=== PATIENT | male | born 1950 | race Caucasian/White ===

== ENCOUNTER 2016-05-06 00:07 | Emergency (ER) | payer OTHER ==
[~2016-05-06] VITALS: Ht 185.4 cm; Wt 108.9 kg
[~2016-05-06 00:07] MED LIST: AUGMENTIN 875875 M1 PO; CRESTOR20 MG PO; LEVAQUIN 750 M750 MG PO; MOBIC15 MG PO; MOM PO; NASONEX17 GM NASAL; NORCO 7.5-3251 EACH PO; OXYCODONE-ACET1 EACH PO; ZYRTEC 10 MG TA10 MG PO; ZYRTEC10 M2
[2016-05-06] MEDS ORDERED: ZPAK PO (01:50)
[2016-05-06] MEDS ORDERED: TUSSIONEX PENN473 ML PO (01:50)
== END 2016-05-06 02:13 | disposition home or self-care (01) ==
LOC: ER 00:07
DX: J18.9 Pneumonia, unspecified organism (principal); R50.9 Fever, unspecified; R51 Headache; M79.1 Myalgia; E78.00 Pure hypercholesterolemia, unspecified; F10.99 Alcohol use, unspecified with unspecified alcohol-induced disorder; F12.10 Cannabis abuse, uncomplicated

== ENCOUNTER 2016-11-02 11:04 | Emergency (ER) | payer OTHER ==
[~2016-11-02] VITALS: Ht 185.4 cm; Wt 113.4 kg
--- NOTE | ~2016-11-02 | EKG ---
[place] [address] [facility] [place] [address] ELECTROCARDIOGRAM REPORT Name: ALEE PETTIT [facility] [id number] Admission: 11/02/16 Attend Phys: Discharge: Date of : 48 Report #: [id number] THIS REPORT FOR: //name// [facility] ED Test Date: 2016-11-02 Test Time: 11:35:41 Pat Name: ALEE PETTIT Department: Room: Gender: [employer]: MERLINE : 1950 Requested By: Demarcus Nguyễn Order Number: [id number] MD: Giuseppe Rai Measurements Intervals [place] Rate: 82 P: 59 IN: 221 QRS: 53 QRSD: 110 T: 11 QT: 377 QTc: 441 Interpretive Statements Sinus rhythm Prolonged IN interval Probable left atrial enlargement Compared to ECG 09/24/2012 10:13:49 First degree AV block now present Myocardial infarct finding no longer present Electronically Signed On 11-02-2016 14:13:23 CDT by Giuseppe Rai [email or web address] <ELECTRONICALLY SIGNED> By: Giuseppe Rai MD 11/02/16 1413 1135 1135 Giuseppe Rai MD /DAVION
[~2016-11-02 11:04] MED LIST changes: +TUSSIONEX PENN473 ML PO; +ZPAK PO
[2016-11-02 11:55] LABS: ABSOLUTE NEUTROPHILS 3.5 thou/uL (1.4-8.2); BASOPHILS 1.5 % (0.0-2.0); EOSINOPHILS 2.5 % (0.0-3.0); HEMATOCRIT 40.4 % (42.0-52.0); HEMOGLOBIN 13.8 gm/dL (14.0-18.0); LYMPHOCYTES 22.9 % (24.0-44.0); MCH 31.6 pg (26.0-34.0); MCHC 34.1 g/dL (28.0-37.0); MCV 92.7 fL (80.0-100.0); MONOCYTES 9.4 % (1.0-8.0); PLATELET COUNT 222 thou/uL (150-400); POLYS 63.7 % (36.0-66.0); RBC 4.36 mil/uL (4.50-6.00); RDW 13.2 % (10.5-14.5); WBC 5.5 thou/uL (4.0-11.0)
[2016-11-02 11:58] LABS: MANUAL DIFF NO
[2016-11-02 12:03] LABS: ANION GAP 6 mmol/L (7-16); BUN 16 mg/dL (7-18); CALCIUM 8.7 mg/dL (8.5-10.1); CHLORIDE 108 mmol/L (98-107); CO2 27 mmol/L (21-32); GLUCOSE 108 mg/dL (74-106); POTASSIUM 3.9 mmol/L (3.5-5.1); SODIUM 141 mmol/L (136-145)
[2016-11-02 12:15] LABS: NT-PRO BRAIN NAT PEPTIDE 45 pg/mL (<300); TROPONIN-I < 0.04 ng/mL (<0.04-0.07)
[2016-11-02] MEDS ORDERED: AUGMENTIN 875-1 EACH PO (15:16)
== END 2016-11-02 15:33 | disposition home or self-care (01) ==
LOC: ER 11:04
PROVIDERS: Emergency Medicine
DX: R91.8 Other nonspecific abnormal finding of lung field (principal); E78.00 Pure hypercholesterolemia, unspecified; M19.90 Unspecified osteoarthritis, unspecified site; F10.99 Alcohol use, unspecified with unspecified alcohol-induced disorder; F12.10 Cannabis abuse, uncomplicated

== ENCOUNTER → 2016-11-11 | Outpatient (CLI) | payer OTHER ==
[~2016-11-11] MED LIST changes: +AUGMENTIN 875-1 EACH PO
== END ==
LOC: RAD 11:41
DX: R04.2 Hemoptysis (principal)

== ENCOUNTER → 2016-12-04 | Outpatient (CLI) | payer OTHER | LOC: CAT 11:01 | DX: J47.9 Bronchiectasis, uncomplicated (principal); R04.2 Hemoptysis ==

== ENCOUNTER → 2017-03-06 | Outpatient (CLI) | payer OTHER | LOC: RAD 11:19 | DX: J98.4 Other disorders of lung (principal); R04.2 Hemoptysis ==

== ENCOUNTER → 2017-03-09 | Outpatient (CLI) | payer OTHER ==
--- NOTE | ~2017-03-09 | CNG ---
[facility] [place] [address] CYTO-NONGYN REPORT PROCEDURE Name: HODANROMERO MARCOS Room #: REG [facility]..#: [id number] Admission: 03/09/17 Date of : 48 Discharge: Report #: [id number] Path Case #: [id number] CYTOPATHOLOGY REPORT COLLECTION DATE: 03/09/2017 RECEIVED DATE: 03/09/2017 SUBMITTING PHYS: Dr. Marzena Robbins OTHER PHYS: Dr. Elaine Cortes CLINICAL HISTORY: Hemoptysis SPECIMEN(S) RECEIVED: A.Bronchoalveolar lavage * * * * * * * * * * * * FINAL DIAGNOSIS: A. Bronchoalveolar lavage: - No malignant cells identified. Pulmonary macrophages, bronchial epithelial cells and acute inflammation identified. PATHOLOGIST: Carleen Quinones M.D. REPORT ELECTRONICALLY SIGNED BY: Carleen Quinones M.D. DATE/TIME: 03/10/2017 11:49 * * * * * * * * * * * * GROSS PATHOLOGY: A. Bronchoalveolar lavage: The specimen is submitted unfixed, labeled "Romero Pettit". Received by the Cytology Department is 13 mL of cloudy red fluid. One ThinPrep slide was prepared. (mm 03.09.2017) BRICK SHADER(S): TRISTIN Mendez(ASCP) INITIAL CPT CODE(S): A; 85942 Professional services performed by [facility] at [facility] [address] , [place] [address] Technical services performed by [facility] at [address] [place] [address]., [address], [place] [address]. [facility] [address] [place] [address], [address] [place] [address] PHONE: [phone] [facility] [address] [place] [address] CYTO-NONGYN REPORT PROCEDURE Name: ROMERO PETTIT Room #: REG [facility] [place]#: [id number] Admission: 03/09/17 Date of : 48 Discharge: Report #: [id number] Path Case #: [id number] DIRECTOR: Bill Muñiz M.D. * * * END OF REPORT * * *
--- NOTE | ~2017-03-09 | P ---
[facility] [place] [address] PROCEDURE REPORT Name: ALEE PETTIT Room #: REG [facility]#: [id number] Admission: 03/09/17 Attend Phys: Marzena Robbins MD Discharge: Date of : 48 Report #: [id number] THIS REPORT FOR: //name// CC: Marzena Cortes PROCEDURE: Fiberoptic bronchoscopy. INDICATION: Hemoptysis. MEDICATIONS: Versed 3 mg, fentanyl 50 mcg. COMPLICATIONS: None. PREOPERATIVE DIAGNOSIS: Rule out endobronchial lesion. POSTOPERATIVE DIAGNOSIS: No endobronchial lesion seen, mucus pitting noted, blood in airway; however, no lesion found. DESCRIPTION OF PROCEDURE: The patient was informed of risks and benefits and has had procedure before and understood. Procedure was done in radiographer cardiac catheterization #3. Lidocaine aerosol and Versed 3 and fentanyl 50 were titrated. The patient tolerated the procedure well. Bronchoscope was placed through bite block. Vocal cords moved normally. Main tammy was sharp when entering airway. There was significant what appeared to be dry blood throughout. This was washed. Left was examined first, no endobronchial lesion seen. On the right, again, no endobronchial lesion seen. Mucus pitting was noted. Washes were done throughout the right; however, no bleeding was noted. The patient tolerated well. Discussed with . CT scan was ordered as well as lab work. If further bleeding, they will go to and he will be having a consult with Dr. Ewing at [facility]. PET scan was not done at this time because of possible active infection, but will need to be considered in the future. By: [id number] Marzena Robbins MD /nt
[2017-03-09 07:49] LABS: HEMATOCRIT 40.3 % (42.0-52.0); HEMOGLOBIN 13.5 gm/dL (14.0-18.0); MCH 30.7 pg (26.0-34.0); MCHC 33.4 g/dL (28.0-37.0); MCV 91.8 fL (80.0-100.0); RBC 4.39 mil/uL (4.50-6.00); RDW 13.4 % (10.5-14.5); WBC 9.5 thou/uL (4.0-11.0)
[2017-03-09 08:03] LABS: PROTIME 10.5 Seconds (9.3-11.4)
== END | disposition home or self-care (01) ==
LOC: CATH 07:09
PROVIDERS: Internal Medicine Pulmonary Disease
DX: R04.2 Hemoptysis (principal)

== ENCOUNTER → 2017-05-14 | Outpatient (CLI) | payer OTHER | LOC: RAD 15:00 | DX: J90 Pleural effusion, not elsewhere classified (principal); J98.11 Atelectasis ==

== ENCOUNTER → 2019-03-22 | Outpatient (CLI) | payer OTHER | LOC: RAD 10:01 | DX: J47.0 Bronchiectasis with acute lower respiratory infection (principal); J18.1 Lobar pneumonia, unspecified organism; J98.4 Other disorders of lung; M95.4 Acquired deformity of chest and rib ==

== ENCOUNTER → 2020-08-05 | Outpatient (CLI) | payer OTHER | LOC: SJCVC 09:59 | PROVIDERS: ATTEND Internal Medicine | DX: Z13.220 Encounter for screening for lipoid disorders (principal); I44.0 Atrioventricular block, first degree; I10 Essential (primary) hypertension; J44.9 Chronic obstructive pulmonary disease, unspecified; E78.5 Hyperlipidemia, unspecified; G47.33 Obstructive sleep apnea (adult) (pediatric); Z87.891 Personal history of nicotine dependence; Z79.899 Other long term (current) drug therapy ==

== ENCOUNTER → 2020-08-23 | Outpatient (CLI) | payer OTHER | LOC: SJCVCIMAG 08:09 | PROVIDERS: ATTEND Internal Medicine | DX: I35.8 Other nonrheumatic aortic valve disorders (principal); I77.89 Other specified disorders of arteries and arterioles; M79.604 Pain in right leg; M79.605 Pain in left leg; M79.89 Other specified soft tissue disorders; R60.0 Localized edema; J44.9 Chronic obstructive pulmonary disease, unspecified; I10 Essential (primary) hypertension; G47.33 Obstructive sleep apnea (adult) (pediatric); E78.2 Mixed hyperlipidemia; Z79.899 Other long term (current) drug therapy; Z87.891 Personal history of nicotine dependence ==

== ENCOUNTER → 2020-09-20 | Outpatient (CLI) | payer OTHER | LOC: SJCVC 11:05 | PROVIDERS: ATTEND Internal Medicine | DX: I10 Essential (primary) hypertension (principal); R60.0 Localized edema; J44.9 Chronic obstructive pulmonary disease, unspecified; E78.5 Hyperlipidemia, unspecified; G47.33 Obstructive sleep apnea (adult) (pediatric); Z87.01 Personal history of pneumonia (recurrent); Z87.891 Personal history of nicotine dependence; Z79.899 Other long term (current) drug therapy ==

== ENCOUNTER → 2021-05-30 | Outpatient (CLI) | payer OTHER | LOC: SJCVC 14:00 | PROVIDERS: ATTEND Internal Medicine | DX: I44.0 Atrioventricular block, first degree (principal); I10 Essential (primary) hypertension; E78.2 Mixed hyperlipidemia; Z13.220 Encounter for screening for lipoid disorders; J44.9 Chronic obstructive pulmonary disease, unspecified; E78.5 Hyperlipidemia, unspecified; J18.9 Pneumonia, unspecified organism; Z79.899 Other long term (current) drug therapy; Z98.890 Other specified postprocedural states; Z87.891 Personal history of nicotine dependence ==